=== PATIENT | female | born 1990 | race Caucasian/White ===

== ENCOUNTER 2024-09-09 22:21 | Emergency (ER) | payer OTHER, SELFPAY ==
[2024-09-09 22:22] VITALS: BP 140/78
--- NOTE | 2024-09-09 22:37 | ED.GENMED ---
ED Provider Triage
<Chaz Mascorro PA-C - Last Filed: 09/09/24 22:37>
-
Patient seen by provider in Triage?: Seen in Triage
Attestation: A medical screening examination has been initiated by a qualified medical provider. Based on the assessment performed at this time, it has been determined that an emergent medical condition may exist and the patient has been informed
that further medical evaluation and possible additional diagnostic testing may be needed.
HPI: 34-year-old female presenting to the ER for evaluation of upper abdominal pain a few days ago with nausea. Currently 19 weeks . Following with total time. No plan to patient for this thus far and has confirmed IUP. Has a
follow-up appointment this coming Monday. No other symptoms. Labs and ultrasound imaging ordered. Attempting to get gallbladder imaging with ultrasound as well.
GENERAL: Alert , in no apparent distress
EYE: No visual abnormalities.
NECK: Trachea midline
ENT: No visible abnormalities.
LUNGS: No acute respiratory distress
NEUROLOGICAL: Alert and oriented
SKIN: Skin intact. No visible changes.
MUSCULOSKELETAL: Moving extremities normally
PSYCH: Normal and appropriate interaction.
This is a medical evaluation conducted in person to initiate diagnostic evaluation and provide initial therapeutics. Please see further documentation by the treating clinician.
History of Present Illness
<Chaz Mascorro PA-C - Last Filed: 09/09/24 22:37>
General
Chief Complaint: Abdominal Pain
Time Seen by Provider: 09/10/24 01:45
<ALPA Moya - Last Filed: 09/10/24 03:38>
General
Source: patient and significant other
Exam Limitations: none
Nursing documentation reviewed up to this point in time: agreed with
History of Present Illness
History of Present Illness:
Pt is a 34F who is at 19 weeks gestation with PMH of hyperthyroidism, seizures, splenectomy and L oophorectomy who presents today with abdominal pain and nausea x 1 day. She states the pain is severe and epigastric in location and it does not
radiate into other quadrants or her back. She states she has been constipated recently but has had one BM today that was 'rock hard.' She has been taking stool softener and Miralax at home to relieve symptoms, which have not seemed to help much. She
admits to mild associated nausea that has been present since onset of abdominal pain but denies any episodes of vomiting. She denies HERNANDEZ, fever, chills, changes in vision, chest pain, dyspnea, back pain, changes in urination.
Past History
<Chaz Mascorro PA-C - Last Filed: 09/09/24 22:37>
Past History
ED Past Medical History: Seizures, Hyperthyroidism and Other (Kidney stones)
Social History
Tobacco: Non-smoker
Alcohol: None
Drug: None
Living: with family
Employment: Employed
Review of Systems
<ALPA Moya - Last Filed: 09/10/24 03:38>
Review of Systems
Allergies reviewed?: Yes
Other source history: family
Constitutional: Reports no symptoms
Respiratory: Reports no symptoms
Cardiac: Reports no symptoms
ABD/GI: Reports abdominal pain (epigastric), nausea and constipated (1 BM today that pt describes as 'rock hard'); Denies vomiting, diarrhea or bloody stools
: Reports no symptoms
Musculoskeletal: Reports no symptoms
Skin: Reports no symptoms
Neurological: Reports no symptoms
Phy Exam
<ALPA Moya - Last Filed: 09/10/24 03:38>
General Physical Exam
General Presentation: well appearing and no apparent distress
General age: appears stated age
General Skin: warm and dry
General Habitus: normal
General Mental: alert
General Hydration: appears well hydrated
Cardiovascular Exam
Cardiovascular Exam: regular rate/rhythm and no murmur
Pulmonary Exam
Pulmonary Exam: lungs clear and no respiratory distress
Gastrointestinal Exam
Gastrointestinal Exam: normal bowel sounds, no cva tenderness and tender
Palpation: left upper quadrant: Minimal tenderness, left lower quadrant: No tenderness, right upper quadrant: Moderate tenderness (wincing on palpation) and right lower quadrant: No tenderness
Course
<Chaz Mascorro PA-C - Last Filed: 09/09/24 22:37>
Orders/Labs/Results
Orders:
Orders
09/09/24 22:29
CBC/With Diff [Complete Blood Count/With Diff] Urgent
CMP [Comprehensive Metabolic Panel] Urgent
Lipase Urgent
Manual Differential Urgent
09/10/24 00:00
US Abdomen Complete/Upper Urgent
Reason For Exam: 2nd trimester, pain, please get gallbladder
09/10/24 02:18
Urinalysis Reflex To Culture Urgent
Date Specimen was Collected: 09/10/24
Time Specimen was Collected: 02:14
Urine Microscopic Reflex Cult Urgent
09/10/24 02:39
Acetaminophen [Tylenol] 1,000 mg PO NOW STA
Abnormal Lab Results
09/09/24 09/10/24
22:29 02:18
WBC 13.7 H 10^3/uL
(4.8-10.8)
RBC 4.14 L 10^6/uL
(4.20-5.40)
MCHC 32.5 L g/dL
(33.0-37.0)
RDW 15.1 H %
(11.5-14.5)
Plt Count 658 H 10^3/uL
(130-400)
Abs Neuts (Manual) 8.4 H 10^3/uL
(1.4-6.5)
Creatinine 0.4 L mg/dL
(0.6-1.0)
Leukocyte Esterase Rfl Trace A
(Negative)
Urine Bacteria (Reflex) Few A
(Negative)
09/09/24 22:29
09/09/24 22:29
Vital Signs
Initial and Last Documented VS:
Initial Vital Signs
Temp Pulse Resp BP Pulse Ox
98.2 F 75 15 140/78 99
09/09/24 22:22 09/09/24 22:22 09/09/24 22:22 09/09/24 22:22 09/09/24 22:22
Last Documented Vital Signs
Temp Pulse Resp BP Pulse Ox
98.2 F 75 16 102/72 99
09/09/24 22:22 09/10/24 02:20 09/10/24 02:20 09/10/24 02:20 09/10/24 02:20
<ALPA Moya - Last Filed: 09/10/24 03:38>
Orders/Labs/Results
Orders:
Orders
09/09/24 22:29
CBC/With Diff [Complete Blood Count/With Diff] Urgent
CMP [Comprehensive Metabolic Panel] Urgent
Lipase Urgent
Manual Differential Urgent
09/10/24 00:00
US Abdomen Complete/Upper Urgent
Reason For Exam: 2nd trimester, pain, please get gallbladder
09/10/24 02:18
Urinalysis Reflex To Culture Urgent
Date Specimen was Collected: 09/10/24
Time Specimen was Collected: 02:14
Urine Microscopic Reflex Cult Urgent
09/10/24 02:39
Acetaminophen [Tylenol] 1,000 mg PO NOW STA
Abnormal Lab Results
09/09/24 09/10/24
22:29 02:18
WBC 13.7 H 10^3/uL
(4.8-10.8)
RBC 4.14 L 10^6/uL
(4.20-5.40)
MCHC 32.5 L g/dL
(33.0-37.0)
RDW 15.1 H %
(11.5-14.5)
Plt Count 658 H 10^3/uL
(130-400)
Abs Neuts (Manual) 8.4 H 10^3/uL
(1.4-6.5)
Creatinine 0.4 L mg/dL
(0.6-1.0)
Leukocyte Esterase Rfl Trace A
(Negative)
Urine Bacteria (Reflex) Few A
(Negative)
09/09/24 22:29
09/09/24 22:29
Vital Signs
Initial and Last Documented VS:
Initial Vital Signs
Temp Pulse Resp BP Pulse Ox
98.2 F 75 15 140/78 99
09/09/24 22:22 09/09/24 22:22 09/09/24 22:22 09/09/24 22:22 09/09/24 22:22
Last Documented Vital Signs
Temp Pulse Resp BP Pulse Ox
98.2 F 75 16 102/72 99
09/09/24 22:22 09/10/24 02:20 09/10/24 02:20 09/10/24 02:20 09/10/24 02:20
<Romana Diaz, DO - Last Filed: 09/10/24 07:17>
Orders/Labs/Results
Orders:
Orders
09/09/24 22:29
CBC/With Diff [Complete Blood Count/With Diff] Urgent
CMP [Comprehensive Metabolic Panel] Urgent
Lipase Urgent
Manual Differential Urgent
09/10/24 00:00
US Abdomen Complete/Upper Urgent
Reason For Exam: 2nd trimester, pain, please get gallbladder
09/10/24 02:18
Urinalysis Reflex To Culture Urgent
Date Specimen was Collected: 09/10/24
Time Specimen was Collected: 02:14
Urine Microscopic Reflex Cult Urgent
09/10/24 02:39
Acetaminophen [Tylenol] 1,000 mg PO NOW STA
Abnormal Lab Results
09/09/24 09/10/24
22:29 02:18
WBC 13.7 H 10^3/uL
(4.8-10.8)
RBC 4.14 L 10^6/uL
(4.20-5.40)
MCHC 32.5 L g/dL
(33.0-37.0)
RDW 15.1 H %
(11.5-14.5)
Plt Count 658 H 10^3/uL
(130-400)
Abs Neuts (Manual) 8.4 H 10^3/uL
(1.4-6.5)
Creatinine 0.4 L mg/dL
(0.6-1.0)
Leukocyte Esterase Rfl Trace A
(Negative)
Urine Bacteria (Reflex) Few A
(Negative)
09/09/24 22:29
09/09/24 22:29
Vital Signs
Initial and Last Documented VS:
Initial Vital Signs
Temp Pulse Resp BP Pulse Ox
98.2 F 75 15 140/78 99
09/09/24 22:22 09/09/24 22:22 09/09/24 22:22 09/09/24 22:22 09/09/24 22:22
Last Documented Vital Signs
Temp Pulse Resp BP Pulse Ox
98.2 F 75 16 102/72 99
09/09/24 22:22 09/10/24 02:20 09/10/24 02:20 09/10/24 02:20 09/10/24 02:20
Celestinelt;ALPA Moya - Last Filed: 09/10/24 03:38>
MDM/Problems Addressed
Differential Diagnosis Includes:
constipation, kidney stones, pancreatitis, cholelithiasis
<ALPA Moya - Last Filed: 09/10/24 03:38>
*Critical Care Note
Total Time (30-74mins, 75-104mins- exclusive of procedures): Not Applicable
<Romana Diaz DO - Last Filed: 09/10/24 07:17>
*Radiology
Radiology exam reviewed: radiology read reviewed
*Pulse Oximetry
Patient hypoxic: no
ED Attending Note
<Chaz Mascorro PA-C - Last Filed: 09/09/24 22:37>
-
Portions of this chart may have been created with voice recognition software.� Occasional wrong word or��sound alike� substitutions may have occurred due to the inherent limitations of voice recognition software.
<Romana Diaz DO - Last Filed: 09/10/24 07:17>
ED Attending Note
Patient seen and examined by attending physician: Yes
I performed the substantive portion of visit, reviewed & personally made and approve the management plan that is documented in note by myself or LIBIA.: Yes
ED Attending Note:
This is a 34-year-old woman with history of epilepsy, ovarian cyst, kidney stones who is 2 para 0-0-1-0. Currently 19 weeks with EDC of February 01. Current successful with in vitro fertilization. She has remote history of
an early miscarriage 15 years ago. She follows with [facility].
She does admit to moderate constipation during early and with infertility medications constipation seem to improve for several weeks but has returned over the past week or 2. She recently began taking Colace as well as MiraLAX and has
passed a small hard stool today. She admits to straining to pass a stool but denies rectal pain nor lower abdominal pain. She complains of epigastric/upper abdominal pain that began today, persistent. Upper abdominal pain is much worse with
movement, worse with repositioning, improves when sitting or lying still. No other associated symptoms. She has had no nausea nor vomiting, no fever no chills, no chest pain or shortness of breath. No back pain or flank pain, no dysuria and
urgency and or hematuria. Pain is not worsened nor improved with meals. Appetite has been good.
GENERAL: 34-year-old woman appears her stated age, awake and alert, pleasant, appears in no acute distress. is accompanying.
EYE: anicteric
NECK: Supple, nontender, no meningismus, no significant adenopathy.
ENT: oral mucosa is moist. No rhinorrhea.
CARDIAC: Regular rate and rhythm. no murmur.
LUNGS: Clear breath sounds bilaterally, no acute respiratory distress, no wheezes/rales/rhonchi
ABDOMEN: Gravid, soft, nondistended, moderate tenderness generalized to the upper abdomen with somewhat exquisite tenderness over the superior aspect of rectus abdominis musculature. There is no palpable mass nor hernia defect. No r/g, fundus
palpable to umbilicus. Nontender. No cvat. normoactive BS.
NEUROLOGICAL: Alert and oriented x3, no focal neuro deficits. Gait is santana and steady.
SKIN: Warm and dry, normal color, skin intact. No rash.
MUSCULOSKELETAL: No C/C/E. peripheral pulses are full and equal b/l. No palpable tenderness.
PSYCH: Normal and appropriate interaction.
Concern for constipation, abdominal wall muscle strain, gastritis, pancreatitis, cholecystitis, UTI.
Labs show mildly elevated white blood cell count of 13.7. Chemistries are unremarkable including normal LFTs, normal lipase.
Abdominal ultrasound is unremarkable, no evidence of cholelithiasis nor cholecystitis. There is minimal right-sided hydronephrosis, unremarkable left kidney, liver and pancreas. The spleen is surgically absent.
I suspect mild right-sided hydronephrosis is physiologic related to . Patient has had no back pain or flank pain. No UTI symptoms but due to , will check urinalysis assess for potential occult UTI.
There is no significant palpable stool burden and I do not suspect upper abdominal discomfort is constipation in nature.
As pain is worse with movement, I suspect abdominal wall muscle strain.
Reassuring that she has not had a fever, no nausea nor vomiting, no difficulty with meals.
Will give a dose of Tylenol for pain.
Urinalysis is pending.
09/10/2024 0349 AM
Patient feeling improved after Tylenol.
Urinalysis not consistent with UTI.
Will discharge to home with recommendations for continuing supportive measures, stool softener, high-fiber diet, Tylenol. Could also try local heating pad.
Prompt follow-up with [facility] for recheck.
Discharge Plan
Departure
Patient Disposition: Home (Routine Discharge)
Date of Disposition: 09/10/24
Time of Disposition: 03:47
Patient with high blood pressure during this ER visit?: No
Condition: Good
Discharge Problem:
Constipation, abdominal wall muscle strain
Instructions: Abdominal Muscle Strain ED, Constipation, Adult ED, High-fiber diet
Prescriptions:
No Action
acetaminophen 325 MG tablet
650 mg PO Q4HPRN PRN (Reason: mild pain) 0RF
docusate sodium 100 MG capsule
100 mg PO BIDPRN PRN (Reason: Constipation) Qty: 30 0RF
oxycodone 5 MG tablet
5 mg PO Q4HPRN PRN (Reason: moderate pain) Qty: 10 0RF
ibuprofen 600 MG tablet
600 mg PO Q6HPRN PRN (Reason: pain/cramping) Qty: 60 0RF
Referrals:
UNKNOWN - PT NOT,INTERVIEWE [Family Provider] -
Activity Restrictions/Additional Instructions:
Follow-up with your cad application support specialist this week for recheck.
Interventions
Interventions:
*Risk Screen - Suicide Last Done: 09/09/24 22:22
*General Assessment Last Done: 09/09/24 22:22
*Neglect/Abuse Screening Last Done: 09/09/24 22:22
*Nursing Disposition Last Done: 09/10/24 04:25
UG-Momvsi-Cxrmwkdchv Assessment Last Done: 09/10/24 02:36
Discharge Date and Time
Discharge Date/Time: 09/10/24 04:15
Print Language: GIBRALTARIAN
[2024-09-09 22:57] LABS: Hematocrit 37.5 % (37.0-47.0); Hemoglobin 12.2 g/dL (12.0-16.0); Mean Corp Hgb Conc. 32.5 g/dL (33.0-37.0); Mean Corpuscular Hgb 29.5 pg (27.0-31.0); Mean Corpuscular Volume 90.6 fL (81.0-99.0); Mean Platelet Volume 8.8 fL (7.4-10.4); Platelet Count 658 10^3/uL (130-400); Red Blood Cell Count 4.14 10^6/uL (4.20-5.40); Red Cell Dist. Width 15.1 % (11.5-14.5); White Blood Cell Count 13.7 10^3/uL (4.8-10.8)
[2024-09-09 22:59] LABS: ALT (SGPT) 27 U/L (0-35); AST (SGOT) 28 U/L (14-36); Albumin 3.9 g/dl (3.5-5.0); Alkaline Phosphatase 53 U/L (38-126); Blood Urea Nitrogen 12 mg/dl (7-17); Calcium 9.6 mg/dl (8.4-10.2); Carbon Dioxide 24 mmol/L (22-30); Chloride 102 mmol/L (98-107); Glucose 92 mg/dl (70-99); Lipase 133 U/L (23-300); Potassium 4.2 mmol/L (3.5-5.1); Sodium 135 mmol/L (135-145); Total Bilirubin 0.5 mg/dl (0.2-1.3); eGFR > 60.00
[2024-09-09 23:12] LABS: Absolute Neutrophils -Man Diff 8.4 10^3/uL (1.4-6.5); Band Neutrophils 0 % (0-3); Eosinophils 4 % (0-6); Lymphocytes 29 % (20-51); Monocytes 4 % (2-9); Normal RBC Morphology Yes; Platelets Checked Yes; Segmented Neutrophils 62 % (42-75)
[2024-09-10 00:14] VITALS: BP 97/60
[2024-09-10 00:29] LABS: Total Cells Counted 100
[2024-09-10 02:20] VITALS: BP 102/72
[2024-09-10 02:27] LABS: Urine Albumin Negative (Neg - Trace); Urine Bilirubin Negative (Negative); Urine Character Clear (Clear); Urine Color Yellow; Urine Glucose Negative (Negative); Urine Ketone Negative (Negative); Urine Leukocyte Trace (Negative); Urine Nitrite Negative (Negative); Urine Occult Blood Negative (Negative); Urine Urobilinogen Negative (Neg - 1+)
[2024-09-10] MEDS: TYLENOL 1000 MG PO (03:08)
[2024-09-10 03:31] LABS: Urine Red Blood Cell 0-2 /HPF (0-2); Urine Squamous Cell >30 /LPF (Few)
[2024-09-10 03:32] LABS: Urine Bacteria Few (Negative)
== END 2024-09-10 04:15 | disposition home or self-care (01) ==
LOC: EMR 22:21
PROVIDERS: Physician Assistant Medical; EMERGENCY PHYSICIAN Emergency Medicine
DX: O26.892 Other specified pregnancy related conditions, second trimester (principal); Z3A.19 19 weeks gestation of pregnancy; R10.13 Epigastric pain; R11.0 Nausea; O99.612 Diseases of the digestive system complicating pregnancy, second trimester; S39.011A Strain of muscle, fascia and tendon of abdomen, initial encounter; O9A.212 Injury, poisoning and certain other consequences of external causes complicating pregnancy, second trimester; O99.282 Endocrine, nutritional and metabolic diseases complicating pregnancy, second trimester; Z90.81 Acquired absence of spleen; R56.9 Unspecified convulsions; K59.00 Constipation, unspecified; Z87.442 Personal history of urinary calculi
CPT/HCPCS: 99284; 76700; 80053; 81003; 81015; 83690; 85025